=== PATIENT | female | born 1950 | race African-American/Black ===

== ENCOUNTER 2019-01-03 05:06 | Observation (INO) ==
[2019-01-03 06:08] LABS: Basophils % 0.9 % (0.0-0.8); Eosinophils # 0.1 10*3/uL (0.0-0.87); Eosinophils % 1.3 % (0.00-10.9); Hematocrit 39.5 VOL% (35.7-47.0); Hemoglobin 12.5 GM/DL (12.0-16.0); Immature Granulocytes % 0.2 %; Immature Granulocytes Absolute 0.01 #; Lymphocytes # 1.1 10*3/uL (1.4-4.0); Lymphocytes % 23.1 % (21.3-54.2); Mean Corpuscular HGB Conc 31.6 GM/DL (32-36); Mean Corpuscular Hemoglobin 28 PG (27-34); Mean Corpuscular Volume 88.6 FL (87-102); Monocytes # 0.6 10*3/uL (0.11-0.8); Monocytes % 13.7 % (1.7-12.7); Neutrophils # 2.8 10*3/uL (1.4-7.4); Neutrophils % 60.8 % (38.7-73.9); Platelet Count 215 T/CUMM (130-400); Red Blood Count 4.46 MC/CUMM (3.8-5.5); White Blood Count 4.5 T/CUMM (4-12)
[2019-01-03 06:20] LABS: Albumin 3.8 G/DL (3.4-5.0); Bilirubin,Total 0.5 MG/DL (0.2-1.0); Calcium 8.8 MG/DL (8.5-10.1); Osmolality,Calculated 271.1 MOS/KG (273-304); Potassium 3.6 MMOL/L (3.5-5.1)
[2019-01-03] MEDS ORDERED: ONDANSETRON 4 MG/2 ML VIAL IV PRN (08:38)
[2019-01-03] MEDS ORDERED: ACETAMINOPHEN 325 MG TABLET PO PRN (08:38)
[2019-01-03] MEDS ORDERED: DEXTROSE 50% 25 GM/50 ML VIAL IV PRN (08:38)
[2019-01-03] MEDS ORDERED: GLUCAGON 1 MG VIAL IM PRN (08:38)
[2019-01-03 09:03] LABS: Risk Ratio 2.42; VLDL CHOLESTEROL 16.8 MG/DL
[2019-01-03] MEDS: CLOPIDOGREL 75 MG TABLET PO SCH (09:57)
[2019-01-03] MEDS: TRIAMTERENE/HCTZ 37.5-25 MG CAPSULE PO SCH (09:57)
[2019-01-03] MEDS: LOSARTAN/HCTZ 50-12.5 MG TABLET PO SCH (09:57)
[2019-01-03] MEDS: METOPROLOL SUCCINATE XL 25 MG TABLET PO SCH (09:57)
[2019-01-03] MEDS: ASPIRIN EC 81 MG TABLET PO SCH (09:57)
[2019-01-03] MEDS: amLODIPine 5 MG TABLET PO SCH (09:57)
[2019-01-03] MEDS: ATORVASTATIN 40 MG TABLET PO SCH (09:58)
[2019-01-03] MEDS: PANTOPRAZOLE 40 MG TABLET PO SCH (09:59)
[2019-01-03] MEDS ORDERED: MAGNESIUM SULF RIDER 2 GM in PREMIX 1 EACH IV PRN (11:07)
[2019-01-03] MEDS ORDERED: MAGNESIUM SULF RIDER 4 GM in PREMIX 1 EACH IV PRN (11:07)
[2019-01-03] MEDS: INSULIN REGULAR 100 UNIT/ML SUBCUT SCH ×3 (12:19→22:00)
[2019-01-03] MEDS: POTASSIUM CHLORIDE 10 MEQ TABLET PO SCH (16:25)
[2019-01-04 05:57] LABS: Basophils # 0.1 10*3/uL (0.0-0.2); Basophils % 1.2 % (0.0-0.8); Eosinophils # 0.1 10*3/uL (0.0-0.87); Eosinophils % 2.2 % (0.00-10.9); Hemoglobin 11.6 GM/DL (12.0-16.0); Immature Granulocytes % 0.2 %; Immature Granulocytes Absolute 0.01 #; Lymphocytes # 1.5 10*3/uL (1.4-4.0); Lymphocytes % 36.4 % (21.3-54.2); Mean Corpuscular HGB Conc 31.4 GM/DL (32-36); Mean Corpuscular Hemoglobin 28 PG (27-34); Mean Corpuscular Volume 88.5 FL (87-102); Mean Platelet Volume 11.5 FL (9.6-12.0); Monocytes # 1.1 10*3/uL (0.11-0.8); Monocytes % 25.8 % (1.7-12.7); Neutrophils # 1.4 10*3/uL (1.4-7.4); Neutrophils % 34.2 % (38.7-73.9); Platelet Count 202 T/CUMM (130-400); Red Blood Count 4.18 MC/CUMM (3.8-5.5); White Blood Count 4.2 T/CUMM (4-12)
[2019-01-04 06:26] LABS: Eosinophils 1 % (0-10); Hypochromasia 1+; Lymphocytes 32 % (20-55); Platelet Estimate Adequate; Segmented Neutrophils 47 % (50-85); Total Cells Counted 100
[2019-01-04 06:32] LABS: Calcium 8.5 MG/DL (8.5-10.1); Osmolality,Calculated 275.2 MOS/KG (273-304); Potassium 3.5 MMOL/L (3.5-5.1)
[2019-01-04 08:59] VITALS: BP 135/66
[2019-01-04] MEDS ORDERED: POTASSIUM CHLORIDE 10 MEQ TABLET PO ONE (09:01)
[2019-01-04] MEDS: INSULIN REGULAR 100 UNIT/ML SUBCUT SCH ×2 (10:06→13:09)
[2019-01-04] MEDS: CLOPIDOGREL 75 MG TABLET PO SCH (10:07)
[2019-01-04] MEDS: LOSARTAN/HCTZ 50-12.5 MG TABLET PO SCH (10:07)
[2019-01-04] MEDS: ASPIRIN EC 81 MG TABLET PO SCH (10:07)
[2019-01-04] MEDS: ATORVASTATIN 40 MG TABLET PO SCH (10:08)
[2019-01-04] MEDS: amLODIPine 5 MG TABLET PO SCH (10:08)
[2019-01-04] MEDS: PANTOPRAZOLE 40 MG TABLET PO SCH (10:08)
[2019-01-04] MEDS: POTASSIUM CHLORIDE 10 MEQ TABLET PO SCH (10:08)
[2019-01-04] MEDS: TRIAMTERENE/HCTZ 37.5-25 MG CAPSULE PO SCH (10:12)
[2019-01-04] MEDS: METOPROLOL SUCCINATE XL 25 MG TABLET PO SCH (10:12)
[2019-01-05] MEDS ORDERED: METOPROLOL SUCCINATE XL 50 MG TABLET PO SCH (09:00)
== END 2019-01-04 15:17 | disposition home or self-care (01) ==
LOC: N.EDINP 05:06 → N.ED 05:06 → N.TELES 09:02
PROVIDERS: ADMIT Internal Medicine; ATTEND Internal Medicine